=== PATIENT | female | born 2000 | race African-American/Black ===

== ENCOUNTER 2020-08-03 17:09 | Emergency (ER) | payer BC, SELFPAY ==
[2020-08-03 17:40] VITALS: BP 125/84; PULSE 95; RESP 16; TEMP 36.9; O2SAT 100
--- NOTE | 2020-08-03 19:20 | PC.NURSE ---
Assumed care of pt. at this time. report from ANDREA Sanchez
--- NOTE | 2020-08-03 19:48 | ED.FEMALEGU ---
HPI - Female Genitourinary General Chief complaint: Urogenital-Female Stated complaint: uti sxs Time Seen by Provider: 08/03/20 18:52 Source: patient Mode of arrival: ambulatory Limitations: no limitations History of Present Illness HPI Narrative: This is a 20 year old female that presents to the ER for dysuria x3 days. Also reports frequency. Reports recent unprotected sex and that she would like to be tested for STDs. Denies fever, flank pain, abdominal pain, vomiting, or hematuria. Related Data Allergies Allergy/AdvReac Type Severity Reaction Status Date / Time No Known Allergies Allergy Verified 08/03/20 18:44 Review of Systems Review of Systems: Narrative: CONSTITUTIONAL: Denies fever GASTROINTESTINAL: Denies abdominal pain, nausea, vomiting GENITOURINARY: Reports dysuria. Denies hematuria. SKIN: Denies rash All systems reviewed & are unremarkable except as noted in HPI and below PMFSH Past Medical History Medical History (Updated 08/03/20 @ 21:26 by Karly Chavis PA-C) No active medical problems Social History Social History (Updated 08/03/20 @ 19:49 by Karly Chavis PA-C) Substance use: never Exam Narrative: Exam Narrative: GENERAL: Well-appearing, well-nourished, and in no acute distress. HEAD: Normocephalic, atraumatic. EYES: EOMI. CHEST: Clear to auscultation. No respiratory distress. No wheezes rales or rhonchi HEART: Regular rate and rhythm. No murmur heard. Normal peripheral pulses. ABDOMEN: Soft, nontender, nondistended, normal active bowel sounds. EXTREMITIES: Normal range of motion. No edema. SKIN: Warm, dry, no rash. NEURO: No focal deficits. Alert and oriented x3. PSYCH: Normal mood and affect PELVIC: Normal external genitalia. Normal appearing cervix. No abnormal discharge. No CMT Course Vital Signs Vital signs: Vital Signs Temperature 98.5 F 08/03/20 17:40 Pulse Rate 95 08/03/20 17:40 Respiratory Rate 16 08/03/20 17:40 Blood Pressure 125/84 08/03/20 17:40 Pulse Oximetry 100 08/03/20 17:40 Temperature 98.5 F 08/03/20 17:40 Pulse Rate 83 08/03/20 20:38 Respiratory Rate 15 08/03/20 20:38 Blood Pressure 115/88 08/03/20 20:38 Pulse Oximetry 100 08/03/20 20:38 MDM - Female Genitourinary MDM Narrative Medical decision making narrative: Patient presents to the ER for dysuria and frequency. She is afebrile and nontoxic appearing. Denies any flank pain, abdominal pain, vomiting or hematuria. Also wanted to be tested for STDs. Trichomonas was negative. Chlamydia, gonorrhea, and genital culture were sent. Patient would like to follow-up for results, she would not like to be presumptively treated. UA with trace leuk esterase. Patient will be started on oral antibiotic. She is to follow-up with primary care doctor. She was given warnings to return the ER Lab Data Attestation: I reviewed the patient's lab results. Labs: Lab Results 08/03/20 08/03/20 08/03/20 Range/Units 18:42 20:05 20:05 Urine Color Yellow (Yellow) Urine Appearance Cloudy H (Clear) Urine pH 8.0 (5.0-9.0) Ur Specific [place] 1.028 (1.001-1.035) Urine Protein 1+ H (Negative) mg/dL Urine Glucose (UA) Negative (Negative) mg/dL Urine Ketones Negative (Negative) mg/dL Ur Blood (Man) Negative (Negative) Urine Nitrate Negative (Negative) Urine Bilirubin Negative (Negative) Urine Urobilinogen Negative (<2.0) mg/dL Leukocyte Esterase Rfl Trace H (Negative) JAKUB/UL C.trachomatis RNA (TMA) Pending N.gonorrhoeae RNA (TMA) Pending Trichomonas Direct ID Negative (Negative) UCG Bedside Result Negative Reference Range: Negative Critical Care Time Critical Care Time Critical Care Time: No Discharge Plan Discharge Clinical Impression: Urinary tract infection Qualifiers: Urinary tract infection type: acute cystitis Hematuria presence: without hematuria Qualified Code(
[2020-08-03 20:10] LABS: Add Urine Microscopic? YES; Appearance Urine Cloudy (Clear); Bilirubin Urine Negative (Negative); Blood Urine Negative (Negative); Color Urine Yellow (Yellow); Glucose Urine UA Negative (Negative); Ketones Urine Negative (Negative); Leukocyte Esterase Ur Trace LEU/UL (Negative); Nitrate Urine Negative (Negative); Protein Urine 1+ mg/dL (Negative); Specific Grav Ur 1.028 (1.001-1.035); Urobilinogen Urine Negative mg/dL (<2.0)
[2020-08-03 20:38] VITALS: BP 115/88; PULSE 83; RESP 15; O2SAT 100
[2020-08-03 21:40] VITALS: BP 120/78; PULSE 77; RESP 20; O2SAT 99
== END 2020-08-03 21:40 | disposition home or self-care (01) ==
PROVIDERS: Emergency Medicine; Physician Assistant; Emergency Provider Emergency Medicine
DX: N30.00 Acute cystitis without hematuria (principal)
CPT/HCPCS: 81001; 81025; 87070; 87491; 87591; 87808; 99284

== ENCOUNTER 2020-08-30 17:16 | Emergency (ER) | payer BC, SELFPAY ==
--- NOTE | ~2020-08-30 | US_ITS ---
EXAMINATION: US OB <= 14 weeks fetus DATE: 08/30/2020 21:08 INDICATION: Pelvic pain. . TECHNIQUE: Real-time transabdominal and transvaginal obstetric ultrasound. FINDINGS: No prior studies for comparison. The uterus measures 7.4 x 4.8 x 5.2 cm. There is an intrauterine gestational sac, with pole joe ntified. The crown rump length measures 1 cm, which correlates with a estimated gestational age of 7 weeks 1 day. heart tones are identified measuring 141 bpm. Ovaries are normal. IMPRESSION: 1. SL IUP with an EGA of 7 weeks, 1 days (EDC by current ultrasound of 04/17/2021). Reviewed, dictated and finalized at location A. ZINE FILLER IMPRESSION: 1. SL IUP with an EGA of 7 weeks, 1 days (EDC by current ultrasound of ).
[2020-08-30 17:28] VITALS: BP 126/77; PULSE 102; RESP 20; TEMP 36.4; O2SAT 100
--- NOTE | 2020-08-30 17:32 | ED.GENADULT ---
HPI - General Adult General Chief complaint: Abdominal Pain Stated complaint: abd pain Time Seen by Provider: 08/30/20 17:26 Source: RN notes reviewed History of Present Illness HPI narrative: Patient presents to emergency department from home for abdominal pain. Patient states she had intermittent abdominal pain located in the lower abdomen for the past 2 days. Pain is described as cramping. It is associated with mild nausea. Denies any fevers or chills chest pain shortness of breath vomiting diarrhea vaginal bleeding or any other symptoms. Patient states she is approximately 6 to 7 weeks . She states she had a test by her PCP and is scheduled to see an [facility] in [place] but cannot recall the name next week. This is her first denies any other symptoms at this time Related Data Allergies Allergy/AdvReac Type Severity Reaction Status Date / Time No Known Allergies Allergy Verified 08/03/20 18:44 Review of Systems Review of Systems: Narrative: Gen.: Denies fevers or chills ENT: Denies congestion Respiratory: Denies shortness of breath or cough CV: Denies chest pain or palpitations GI: See HPI reports Musculoskeletal: Denies back pain or muscle pain Neuro: Denies numbness, tingling, weakness or focal weakness Skin: Denies rash Except as documented, all other systems reviewed and negative [facility] Past Medical History Medical History (Updated 08/30/20 @ 22:11 by John Hinojosa DO) No active medical problems Patient denies significant medical history Social History Social History (Updated 08/30/20 @ 17:33 by John Hinojosa DO) Smoking status: Never smoker Substance use: never Exam Narrative: Exam Narrative: APPEARANCE: No acute distress, nontoxic, resting in bed EYES: EOMI HEENT: Normocephalic, atraumatic, OMM RESPIRATORY: No respiratory distress Clear to auscultation bilaterally with no rhonchi wheezing or rales. CARDIOVASCULAR: Regular rate and rhythm without murmurs rubs or gallops. ABDOMINAL: Soft, nontender, nondistended, no rebound or guarding MUSCULOSKELETAl: Moves all extremities. No clubbing, cyanosis or edema. NEURO: Awake and alert. Following commands, speech normal, no focal deficits SKIN:: Warm, dry. No rashes lesions or abrasions PSYCHIATRIC: Normal affect/mood, Course Course Emergency Course: Called and discussed with Dr. Orellana presentation work-up. Agrees with plan for discharge and follow-up as an outpatient Patient states that they are feeling much better at this time. States abdominal pain has resolved. Repeat abdominal exam shows the patient's abdomen to be soft and nontender. Discussed with patient results of workup and diagnosis. Discussed need for follow-up with primary care physician, reasons to return to the emergency department in proper use of medication. Patient understands and agrees to current treatment plan Vital Signs Vital signs: Vital Signs Temperature 97.6 F 08/30/20 17:28 Pulse Rate 102 H 08/30/20 17:28 Respiratory Rate 20 08/30/20 17:28 Blood Pressure 126/77 08/30/20 17:28 Pulse Oximetry 100 08/30/20 17:28 Temperature 97.8 F 08/30/20 19:32 Pulse Rate 79 08/30/20 20:30 Respiratory Rate 18 08/30/20 20:30 Blood Pressure 105/71 08/30/20 20:30 Pulse Oximetry 100 08/30/20 20:30 Medical Decision Making MDM Narrative Medical decision making narrative: Patient's abdomen is soft without significant pain or signs of surgical abdomen on serial exams. Lab and x-ray evaluations are reviewed and patient is felt to be a reasonable candidate for outpatient management. Ultrasound shows live intrauterine . Prior to discharge repeat abdominal exam is soft and nontender patient was instructed as to limitations of x-ray and laboratory evaluation and encouraged to return to ED or primary physician for repeat exam in 12 hours if continued or worsening pain Vital Signs Vital Signs: Vital Signs Meyers Chuck
[2020-08-30 17:52] LABS: Basophils Percent Auto 0.3 % (0.2-1.2); Eosinophils Absolute Auto 0.1 K/mm3 (0-0.3); Eosinophils Percent Auto 0.4 % (0-4.4); Hematocrit 34.7 % (37.0-47.0); Hemoglobin 11.1 g/dL (12.0-15.0); Immature Granulocyte Absolute 0.05 K/mm3 (0.00-0.031); Immature Granulocyte Percent A 0.3 % (0-0.5); Lymphocytes Absolute Auto 1.76 K/mm3 (0.9-3.2); Lymphocytes Percent Auto 11.8 % (18.3-44.2); Mean Corpuscular Hemoglobin 26.9 pg (26-34); Mean Corpuscular Volume 84.2 fl (80-100); Mean Platelet Volume 9.5 fl (7.4-10.4); Monocytes Percent Auto 6.6 % (2.6-8.5); Neutrophils Percent Auto 80.6 % (45.5-73.1); Platelet Count Result 259 k/mm3 (150-375); Red Blood Count 4.12 M/mm3 (4.2-5.4); Red Cell Distribution Width 14.1 % (11.5-14.5); White Blood Count 14.9 K/mm3 (4.5-10.0)
[2020-08-30] MEDS: SODIUM CHLORIDE 0.9% IV 1,000 ML 999 ML IV CONT (17:56)
[2020-08-30 18:02] VITALS: BP 133/81; PULSE 94; RESP 16; O2SAT 100
[2020-08-30 18:06] LABS: Alanine Aminotransferase 11 U/L (4-35); Albumin Level 3.9 g/dL (3.5-5.1); Alkaline Phosphatase 52 U/L (38-126); Anion Gap 7 mmol/L (8-16); Aspartate Amino Transferase 21 U/L (14-36); Bilirubin,Total 0.2 mg/dL (0.2-1.3); Blood Urea Nitrogen 8 mg/dL (7-17); Calcium 9.3 mg/dL (8.4-10.2); Carbon Dioxide 27 mmol/L (22-30); Chloride 102 mmol/L (98-107); Estimated CRCL calculation 119 ml/min; Estimated Glomerular Filt Rate > 60; Glucose 98 mg/dL (65-105); Potassium 3.7 mmol/L (3.4-5.0); Sodium 136 mmol/L (137-145)
[2020-08-30 19:32] VITALS: BP 103/82; PULSE 81; RESP 16; TEMP 36.6; O2SAT 100
[2020-08-30 20:15] VITALS: BP 112/80; PULSE 84; RESP 16; TEMP 36.6; O2SAT 100
[2020-08-30 20:30] VITALS: BP 105/71; PULSE 79; RESP 18; O2SAT 100
[2020-08-30 22:02] LABS: Add Urine Microscopic? YES; Appearance Urine Cloudy (Clear); Bacteria Urine Trace /hpf; Bilirubin Urine Negative (Negative); Blood Urine Negative (Negative); Color Urine Yellow (Yellow); Glucose Urine UA Negative (Negative); Ketones Urine Negative (Negative); Leukocyte Esterase Ur Negative LEU/UL (Negative); Mucus Urine Rare /lpf; Nitrate Urine Negative (Negative); Protein Urine Negative (Negative); RBC Urine 0-2 /hpf (0-2); Specific Grav Ur 1.025 (1.001-1.035); Squamous Epithelial Cell Urine Few /hpf (Few); Urobilinogen Urine Negative mg/dL (<2.0); WBC Urine 0-3 /hpf
== END 2020-08-30 22:30 | disposition home or self-care (01) ==
PROVIDERS: Emergency Provider Emergency Medicine
DX: O26.891 Other specified pregnancy related conditions, first trimester (principal); R10.30 Lower abdominal pain, unspecified; Z3A.01 Less than 8 weeks gestation of pregnancy
CPT/HCPCS: 36415; 76801; 80053; 81001; 84702; 85025; 96361; 96374; 99284; J0131; J7030

== ENCOUNTER 2021-02-18 15:32 | Observation (INO) | payer BC, SELFPAY ==
[2021-02-18 15:49] VITALS: BP 120/76; PULSE 99
[2021-02-18 16:00] VITALS: BP 116/81; PULSE 95
[2021-02-18 16:11] VITALS: TEMP 37.6
[2021-02-18 16:15] VITALS: BP 115/78; PULSE 91; BMI 31.1
--- NOTE | 2021-02-18 16:15 | OBADM ---
This patient, Kayla Renner, admitted to the OB room OB Post 115 for observation. Patient/family oriented to hospital policies and general routines including ID bracelet, bed and alarms, visiting hours, pain management, procedures, bathroom and other care routines, personal items, smoking policy, room service/diet, and visiting hours. Patient/Family are encouraged to report perceived risks to care and to ask questions if they do not understand what they are told or what they should do. Pt. received from ED via wheelchair and taken to room 115. Pt. reports lower abdominal pain and thigh soreness for the past 2 days. Pt. denies vaginal bleeding and leaking of fluid, but does report movement. EFM X2 applied and will monitor.
[2021-02-18 16:25] LABS: Add Urine Microscopic? YES; Appearance Urine Clear (Clear); Bacteria Urine Trace /hpf; Bilirubin Urine Negative (Negative); Blood Urine Negative (Negative); Color Urine Yellow (Yellow); Glucose Urine UA 2+ mg/dL (Negative); Ketones Urine Negative (Negative); Leukocyte Esterase Ur Negative LEU/UL (Negative); Mucus Urine Rare /lpf; Nitrate Urine Negative (Negative); Protein Urine Negative (Negative); RBC Urine 0-2 /hpf (0-2); Specific Grav Ur 1.013 (1.001-1.035); Squamous Epithelial Cell Urine Few /hpf (Few); Urobilinogen Urine Negative mg/dL (<2.0)
[2021-02-18 16:30] VITALS: BP 118/76; PULSE 93
--- NOTE | 2021-02-18 19:32 | PM.OBTRLD ---
OB - Triage/Final Diagnosis Visit Information Comments/Additional reasons for admission: I have assessed the risk for this patient, Kayla Renner, and determined that she would benefit from observation care. Evaluation Laboratory results: Laboratory Tests 02/18/21 15:45 Urine Color Yellow Urine Appearance Clear Urine pH 7.0 Ur Specific [place] 1.013 Urine Protein Negative Urine Glucose (UA) 2+ H Urine Ketones Negative Ur Blood (Man) Negative Urine Nitrate Negative Urine Bilirubin Negative Urine Urobilinogen Negative Leukocyte Esterase Rfl Negative Urine RBC 0-2 Urine WBC 4-6 H Ur Squamous Epith Cells Few Urine Bacteria Trace Urine Mucus Rare Final Diagnosis (1) False labor: Code(s): O47.9 - False labor, unspecified Status: Acute
== END 2021-02-18 17:06 | disposition home or self-care (01) ==
PROVIDERS: Admitting Provider Obstetrics & Gynecology; Visit Provider Obstetrics & Gynecology
DX: O47.03 False labor before 37 completed weeks of gestation, third trimester (principal); Z3A.32 32 weeks gestation of pregnancy
CPT/HCPCS: 81001; G0378; G0379

== ENCOUNTER 2021-12-18 16:24 | Emergency (ER) | payer BC, SELFPAY ==
[2021-12-18 16:30] VITALS: BP 136/81; PULSE 110; RESP 17; TEMP 36.7; O2SAT 100
--- NOTE | 2021-12-18 18:24 | ED.LOWEXIN ---
HPI - Extremity Injury (Lower) General Chief Complaint: Extremity Injury, Lower Stated Complaint: Upper Right Leg Pain Time Seen by Provider: 12/18/21 16:35 Source: patient History of Present Illness HPI Narrative: 21 year old female presents today with complaints of intermittent right leg pain for the past few days. She says she has had this before but it resolves normally. Patient endorses pain and pins and needles sensations that shots down her right leg and at times can go into her lower leg. Numbness and tingling noted also at times. Patient denies any injuries to back. Patient also denies fever, urinary incontinence, bowel incontinence, saddle paraesthesia, or weakness to legs. Related Data Home Medications Medication Instructions Recorded Confirmed PNV cmb#95-ferrous fumarate-FA 1 tablet PO DAILY 02/18/21 02/18/21 [] ferrous fumarate 325 mg PO BID 02/18/21 02/18/21 Allergies Allergy/AdvReac Type Severity Reaction Status Date / Time No Known Allergies Allergy Verified 08/03/20 18:44 Review of Systems Constitutional: Constitutional: Reports as per HPI and Reports no additional constitutional complaints Cardiovascular: Cardiovascular: Reports no additional cardiovascular complaints Respiratory: Respiratory: Reports no additional respiratory complaints Gastrointestinal: Gastrointestinal: Reports no additional gastrointestinal complaints Genitourinary: Genitourinary: Reports no additional female genitourinary complaints Musculoskeletal: Musculoskeletal: Reports as per HPI and Reports back pain Neurologic: Reports as per HPI and Reports radicular pain (down right leg) [facility] Past Medical History Medical History No active medical problems Patient denies significant medical history Social History Social History Smoking status: Never smoker Substance use: never Exam Narrative: GENERAL: Well-appearing, well-nourished, and in no acute distress. HEAD: Normocephalic, atraumatic. EYES: PERRLA and EOMI. ENT: Nares clear, no rhinorrhea or epistaxis. Mucous membranes moist. Oropharynx without tonsillar hypertrophy exudate or other lesions. Bilateral TMs pearly panda nonbulging NECK: Supple. No adenopathy or masses. No carotid bruits or JVD CHEST: Clear to auscultation. No respiratory distress. No wheezes rales or rhonchi HEART: Regular rate and rhythm. No murmur heard. Normal peripheral pulses. ABDOMEN: Soft, nontender, nondistended, normal active bowel sounds. EXTREMITIES: Normal range of motion. No edema. Positive straight leg test right leg. SKIN: Warm, dry, no rash. NEURO: No focal deficits. Alert and oriented x3. PSYCH: Normal mood and affect. Course Vital Signs Vital signs: Vital Signs Temperature 36.7 C 12/18/21 16:30 Pulse Rate 110 H 12/18/21 16:30 Respiratory Rate 17 12/18/21 16:30 Blood Pressure 136/81 12/18/21 16:30 Pulse Oximetry 100 12/18/21 16:30 Temperature 36.7 C 12/18/21 16:30 Pulse Rate 110 H 12/18/21 16:30 Respiratory Rate 17 12/18/21 16:30 Blood Pressure 136/81 12/18/21 16:30 Pulse Oximetry 100 12/18/21 16:30 MDM - Extremity Injury (Lower) Differential Diagnosis Differential diagnosis: Likely other (sciatica, leg pain, muscle strain) Medical Records Attestation: I reviewed the patient's medical records. Discharge Plan Discharge Clinical Impression: Sciatica Qualifiers: Laterality: right Qualified Code(s): M54.31 - Sciatica, right side Patient Disposition: Home, Self-Care Condition: Stable Instructions: Antibiotic Form Additional Instructions: Take ibuprofen as prescribed. May take it around the clock for the first few days. Then as needed for pain. Follow-up with primary provider in 1 week for further management. Return for any new or worsening symptoms Prescriptions: New ibuprofen 600 mg
== END 2021-12-18 17:48 | disposition home or self-care (01) ==
PROVIDERS: Emergency Provider Nurse Practitioner Family
DX: M54.31 Sciatica, right side (principal)
CPT/HCPCS: 99283

== ENCOUNTER 2023-09-27 15:55 | Outpatient (CLI) | payer OTHER, SELFPAY ==
[2023-09-27 16:38] LABS: Basophils Percent Auto 0.3 % (0.2-1.2); Eosinophils Percent Auto 0.3 % (0-4.4); Hematocrit 36.9 % (37.0-47.0); Hemoglobin 11.7 g/dL (12.0-15.0); Immature Granulocyte Absolute 0.03 K/mm3 (0.00-0.031); Immature Granulocyte Percent A 0.3 % (0-0.5); Lymphocytes Absolute Auto 1.58 K/mm3 (0.9-3.2); Lymphocytes Percent Auto 13.7 % (18.3-44.2); Mean Corpuscular HGB Conc 31.7 g/dl (32-36); Mean Corpuscular Hemoglobin 27.2 pg (26-34); Mean Corpuscular Volume 85.8 fl (80-100); Monocytes Absolute Auto 0.8 K/mm3 (0.1-0.6); Monocytes Percent Auto 7.1 % (2.6-8.5); Neutrophils Absolute Auto 9.1 K/mm3 (1.3-6.7); Neutrophils Percent Auto 78.3 % (45.5-73.1); Platelet Count Result 258 k/mm3 (150-375); Red Cell Distribution Width 14.3 % (11.5-14.5); White Blood Count 11.6 K/mm3 (4.5-10.0)
[2023-09-27 16:55] LABS: Alanine Aminotransferase 15 U/L (6-35); Albumin Level 4.3 g/dL (3.5-5.1); Alkaline Phosphatase 57 U/L (38-126); Anion Gap 12 mmol/L (8-16); Aspartate Amino Transferase 19 U/L (14-36); Bilirubin,Total 0.4 mg/dL (0.2-1.3); Blood Urea Nitrogen 8 mg/dL (7-17); Calcium 9.7 mg/dL (8.4-10.2); Carbon Dioxide 20 mmol/L (22-30); Chloride 104 mmol/L (98-107); Estimated Glomerular Filt Rate > 60; Glucose 86 mg/dL (65-110); Potassium 3.5 mmol/L (3.4-5.0); Sodium 136 mmol/L (137-145)
[2023-09-27 17:37] LABS: HIV 1/2 Ab P24 Ag Result Negative (Negative)
[2023-09-27 18:20] LABS: Creatinine Urine 178.9 mg/dL; Total Protein Urine Random 8 mg/dL
[2023-09-27 20:43] LABS: Hepatitis B Surface Antigen Negative (Negative); Rubella IgG Antibody 6.8 IU/ML
[2023-09-28 13:18] LABS: Rapid Plasma Reagin Non-Reactive (NonReactive)
[2023-10-13 08:53] LABS: CF Result Negative; Ethnicity AA
== END 2023-09-27 15:56 | disposition home or self-care (01) ==
LOC: ANHLAB 15:57
PROVIDERS: Visit Provider Obstetrics & Gynecology
DX: N94.89 Other specified conditions associated with female genital organs and menstrual cycle (principal); Z87.59 Personal history of other complications of pregnancy, childbirth and the puerperium
CPT/HCPCS: 36415; 80053; 81050; 81220; 81329; 82570; 84156; 84702; 85025; 85660; 86592; 86644; 86703; 86747; 86762; 86787; 86850; 86900; 86901; 87086; 87088; 87340; G0432

== ENCOUNTER 2023-12-26 14:59 | Outpatient (CLI) | payer BC, SELFPAY ==
--- NOTE | ~2023-12-26 | US_ITS ---
EXAMINATION: US OB /maternal detail DATE: 12/26/2023 16:03 INDICATION: Encounter for supervision of normal . TECHNIQUE: Real-time ultrasound of the pelvis was performed. COMPARISON: Ultrasound 10/04/2023 FINDINGS: There is a single living fetus in vertex presentation. The placenta is anterior and fundal. he art rate is 146 beats per minute (bpm). The amniotic fluid volume is subjectively normal. The following biometric data were obtained: Biparietal diameter (BPD): 5.5 cm; head circumference (HC): 21.2 cm; abdominal circumference (AC): 19 .3 cm; femur length (FL): 4.3 cm. These measurements are concordant. Estimated weight is 632 g +/- 95 g, which correlates with the 75th percentile when 04/22/24 is u sed as estimated date of delivery. As single measurements, these parameters are each equal to the following estimated gestational ages: BPD: 22 weeks 5 days. HC: 23 weeks 2 days. AC: 24 weeks 0 days. FL: 23 weeks 6 days. estimated gestational age based solely on measurements from this exam is 23 weeks 3 days +/- 1 weeks 4 days. The cerebral ventricles, cerebellum, cisterna magna, nuchal fold, and visualized portions of the spin e are normal. The heart is normal. The diaphragm, stomach, kidneys, and bladder are normal. There are two umbilical arteries to yield a 3-vessel cord. The cord insertion is normal. IMPRESSION: 1. Single living fetus in vertex presentation. 2. Estimated weight is 632 g +/- 95 g, which correlates with the 75th percentile when 04/22/24 is used as estimated date of delivery. 3. Normal anatomic survey. Reviewed, dictated and finalized at location A. TLE MACHINE OPERATOR IMPRESSION: 1. Single living fetus in vertex presentation. 2. Estimated weight is 632 g +/- 95 g, which correlates with the 75th pe rcentile when 04/22/24 is used as estimated date of delivery. 3. Normal anatomic survey.
== END 2023-12-26 15:00 | disposition home or self-care (01) ==
PROVIDERS: Visit Provider Obstetrics & Gynecology
DX: Z34.90 Encounter for supervision of normal pregnancy, unspecified, unspecified trimester (principal)
CPT/HCPCS: 76805

== ENCOUNTER 2024-02-05 14:57 | Outpatient (CLI) | payer BC, SELFPAY ==
[2024-02-05 16:18] LABS: Hematocrit 32.3 % (37.0-47.0); Mean Corpuscular Hemoglobin 26.9 pg (26-34); Mean Corpuscular Volume 86.8 fl (80-100); Mean Platelet Volume 9.6 fl (7.4-10.4); Platelet Count Result 250 k/mm3 (150-375); Red Blood Count 3.72 M/mm3 (4.2-5.4); Red Cell Distribution Width 15.4 % (11.5-14.5)
[2024-02-05 16:30] LABS: Glucose 1 Hour PP 50gm Dose 104 mg/dL
[2024-02-05 17:22] LABS: HIV 1/2 Ab P24 Ag Result Negative (Negative)
== END 2024-02-05 14:58 | disposition home or self-care (01) ==
LOC: ANHLAB 14:59
PROVIDERS: Visit Provider Student in an Organized Health Care Education/Training Program
DX: Z34.90 Encounter for supervision of normal pregnancy, unspecified, unspecified trimester (principal)
CPT/HCPCS: 36415; 82947; 85027; 86703; G0432

== ENCOUNTER 2024-02-20 14:50 | Outpatient (CLI) | payer BC, SELFPAY ==
--- NOTE | ~2024-02-20 | US_ITS ---
EXAMINATION: US OB follow up DATE: 02/20/2024 15:14 INDICATION: Supervision of normal TECHNIQUE: Real-time transabdominal obstetric ultrasound. FINDINGS: Comparison ultrasound dated 12/26/2023 There is a single living fetus in vertex presentation. The placenta is anterior without placenta pre via. cardiac activity and movement is noted with a heart rate of 150 beats per minute. T he amniotic fluid volume is normal. ELLIE measures 10.9 cm The following biometric data were obtained: BPD: 80mm corresponds to gestational age 32 weeks 0 days. Head circumference: 285mm corresponds to gestational age 31 weeks 2 days. Abdominal circumference: 273mm corresponds to gestational age 31 weeks 2 days. Femur length: 60mm corresponds to gestational age 31 weeks 0 days. Estimated weight: 1739grams +/- 261grams, 43% by Hadlock method.] IMPRESSION: 1. Single living intrauterine in vertex presentation with an estimated gestational age of 31 weeks 1 days by inititial ultrasound. Appropriate interval growth. 2. Normal placenta. Reviewed, dictated and finalized at location B. IMPRESSION: 1. Single living intrauterine in vertex presentation with an estimat ed gestational age of 31 weeks 1 days by inititial ultrasound. Appropriate int erval growth. 2. Normal placenta.
== END 2024-02-20 14:51 ==
LOC: GOSHIMG 14:51
PROVIDERS: PCP Student in an Organized Health Care Education/Training Program; Visit Provider Student in an Organized Health Care Education/Training Program
DX: Z34.90 Encounter for supervision of normal pregnancy, unspecified, unspecified trimester (principal)
CPT/HCPCS: 76816